=== PATIENT | female | born 1955 | race Caucasian/White ===

== ENCOUNTER 2019-05-02 10:00 | Day surgery (SDC) | payer OTHER ==
[2019-04-29 13:11] VITALS: BMI 26.5
[2019-05-02] MEDS ORDERED: LIDOCAINE HCL 1%, 10 MG/ML (20ML VIAL) ONE (10:53)
[2019-05-02] MEDS ORDERED: MIDAZOLAM HCL 2 MG/2 ML SINGLE DOSE VIAL ONE (11:32)
[2019-05-02] MEDS ORDERED: ceFAZolin SODIUM 1 GM VIAL IVPB ONE (11:37)
[2019-05-02] MEDS ORDERED: DEXAMETHASONE SOD PHOSPHATE 4 MG/1 ML VIAL ONE ×3 (11:37→14:44)
[2019-05-02] MEDS ORDERED: ceFAZolin SODIUM 1 GM VIAL ONE ×2 (11:37)
[2019-05-02] MEDS ORDERED: HEPARIN NA (PORCINE) 1,000 UNITS/ML 10ML M-D VIAL SQ ONE ×2 (12:05)
[2019-05-02] MEDS ORDERED: LIDOCAINE HCL 1%, 10 MG/ML (20ML VIAL) INF ONE (12:10)
[2019-05-02] MEDS ORDERED: oxyCODONE HCL 5 MG TABLET PO PRN (12:26)
[2019-05-02] MEDS ORDERED: ONDANSETRON 4 MG/2 ML VIAL IVPUSH PRN (12:26)
[2019-05-02] MEDS ORDERED: LACTATED RINGERS SOLUTION 1,000 ML IV SCH (12:30)
[2019-05-02] MEDS ORDERED: ROCURONIUM BROMIDE 50 MG/5 ML SYRINGE ONE ×2 (12:57→13:45)
[2019-05-02] MEDS ORDERED: PROPOFOL 20 ML ONE ×2 (12:57)
[2019-05-02] MEDS ORDERED: SUCCINYLCHOLINE CHLORIDE 200 MG/10 ML SYRINGE ONE (12:57)
[2019-05-02 13:30] VITALS: TEMP 97.7
[2019-05-02] MEDS ORDERED: GLYCOPYRROLATE 0.2 MG/1 ML VIAL ONE (14:44)
[2019-05-02] MEDS ORDERED: NEOSTIGMINE METHYLSULFATE 0.5 MG/ML - 10 ML MDV ONE (14:45)
[2019-05-02 15:30] VITALS: BP 123/74; PULSE 57
--- NOTE | 2019-05-02 15:54 | OP ---
DATE OF OPERATION: 05/02/2019 PREOPERATIVE DIAGNOSIS: Breast cancer, insufficient venous access. POSTOPERATIVE DIAGNOSIS: Breast cancer, insufficient venous access. PROCEDURE: Insertion of left Mediport via fluoroscopy. SURGEON: Betty Almonte MD ANESTHESIA: Local IV sedation. ESTIMATED BLOOD LOSS: Minimal. COMPLICATIONS: None. This was a sterile procedure. INDICATIONS: Patient has an ER/CO negative, HER2/elizabeth positive, lymph node positive right breast cancer, needs neoadjuvant chemotherapy and venous access. Therefore, my recommendation was a left Mediport. The procedure was discussed with her and all of the questions answered. DESCRIPTION OF PROCEDURE: Patient was brought to [facility] in [place]. Taken into the operating room, and after IV sedation and IV antibiotics, the left chest and neck were prepped and draped in the usual sterile fashion. The area in the upper left chest was anesthetized with 1% lidocaine without epinephrine. With Trendelenburg approach, percutaneous stick of the left subclavian vein was performed with good venous return. Using the Seldinger technique, a Mediport catheter was inserted into the superior vena cava under direct fluoroscopy. This catheter was flushed with heparinized saline. Next, a pocket for the Mediport was created, and the catheter was then tunneled through and cut at the appropriate length and attached to the Mediport device. The system was again flushed with heparinized saline with good venous return. Once hemostasis was assured, the incisions were closed in a routine fashion with interrupted 3-0 Vicryl, running 4-0 Biosyn. The catheter insertion incision also closed with 4-0 Biosyn. A sterile dressing over Tegaderm was applied. She tolerated procedure well. Was taken to recovery in good condition. BETTY ALMONTE M.D. [id number]
== END 2019-05-02 14:00 | disposition home or self-care (01) ==
LOC: JASU-SURG 10:00
PROVIDERS: ATTEND Surgery
PROC: 02HV33Z Insertion of Infusion Device into Superior Vena Cava, Percutaneous Approach (ICD-10-PCS; 2019-05-02)
PROC: B518ZZA Fluoroscopy of Superior Vena Cava, Guidance (ICD-10-PCS; 2019-05-02)
PROC: 0JH63XZ Insertion of Tunneled Vascular Access Device into Chest Subcutaneous Tissue and Fascia, Percutaneous Approach (ICD-10-PCS; principal; 2019-05-02 11:00)
DX: C50.919 Malignant neoplasm of unspecified site of unspecified female breast (principal)
CPT/HCPCS: 36561; 77001; C1788; 71045-TC-FY; 76000-TC-FY; 94760; J1644

== ENCOUNTER 2019-12-16 05:39 | Inpatient (IN) | payer OTHER ==
[2019-12-15 10:22] VITALS: BMI 24.0
--- NOTE | 2019-12-16 10:31 | EKG ---
Test Reason : Blood Pressure : / mmHG Vent. Rate : 069 BPM Atrial Rate : 069 BPM P-R Int : 190 ms QRS Dur : 098 ms QT Int : 400 ms P-R-T Axes : 064 -69 069 degrees QTc Int : 428 ms NORMAL SINUS RHYTHM LEFT AXIS DEVIATION ABNORMAL ECG NO PREVIOUS ECGS AVAILABLE Confirmed by TONYA ALVAREZ MD ([id number]) on 12/16/2019 10:30:48 AM Referred By: Betty Fallon Confirmed By:TONYA ALVAREZ MD
[2019-12-16] MEDS ORDERED: ISOSULFAN BLUE 10 MG/ML VIAL SQ ONE (12:29)
[2019-12-16] MEDS ORDERED: PROPOFOL 20 ML ONE ×2 (12:51)
[2019-12-16] MEDS ORDERED: MIDAZOLAM HCL 2 MG/2 ML SINGLE DOSE VIAL ONE (12:51)
[2019-12-16] MEDS ORDERED: DEXAMETHASONE SOD PHOSPHATE 4 MG/1 ML VIAL ONE (12:53)
[2019-12-16] MEDS ORDERED: KETOROLAC TROMETHAMINE 30 MG/1 ML VIAL ONE (12:53)
[2019-12-16] MEDS ORDERED: LIDOCAINE HCL/PF 2% SDV 5ML VIAL ONE (12:53)
[2019-12-16] MEDS ORDERED: LIDOCAINE HCL 1%, 10 MG/ML (20ML VIAL) ONE (12:53)
[2019-12-16] MEDS ORDERED: ceFAZolin SODIUM 1 GM VIAL ONE ×2 (12:53→18:21)
[2019-12-16] MEDS ORDERED: ceFAZolin SODIUM 1 GM VIAL IVPB ONE (13:08)
[2019-12-16] MEDS ORDERED: MORPHINE SULFATE 2 MG/ML VIAL IVPUSH PRN (14:48)
[2019-12-16] MEDS ORDERED: oxyCODONE HCL 5 MG TABLET PO PRN ×2 (14:58)
[2019-12-16] MEDS ORDERED: PROMETHAZINE HCL 25 MG/1 ML VIAL IVPUSH PRN (14:58)
[2019-12-16] MEDS ORDERED: ONDANSETRON 4 MG/2 ML VIAL IVPUSH PRN (14:58)
--- NOTE | 2019-12-16 16:44 | OP ---
DATE OF OPERATION: 12/16/2019 PREOPERATIVE DIAGNOSIS: Right breast cancer. POSTOPERATIVE DIAGNOSIS: Right breast cancer. PROCEDURE: Right total mastectomy and sentinel node biopsy. SURGEON: Betty Fallon MD ANESTHESIA: General. ESTIMATED BLOOD LOSS: 50 mL. DRAINS: ANGELO x2. COMPLICATIONS: None. This was a sterile procedure. INDICATION FOR PROCEDURE: Patient presented to me with an abnormal right mammogram and ultrasound as well as a right axillary ultrasound and needle biopsy of both the areas showing invasive carcinoma. She had neoadjuvant chemotherapy with an excellent response. She now presents for definitive surgery. The procedure was discussed with all the questions answered. PROCEDURE IN DETAIL: The patient was brought to [facility] and taken to radiology where attempted to localize the clip in the right axilla. I was unable to see it on the ultrasound and it was very deep only seen on the MLO view and was unable to localize this. Therefore, she was then brought to nuclear medicine where I injected technetium 99m sulfur colloid as an intradermal injection into the right 2 oclock areolar border. She was then brought into the operating room and after induction of general anesthesia and IV antibiotics, 5 mL of Isosulfan blue dye was injected into the right subareolar plexus and the breast was massaged for 5 minutes. The breast and axilla were then prepped and draped in the usual sterile fashion. A 4-cm incision was made in the right axilla carried down through the clavipectoral fascia to identify several sentinel lymph nodes. There was sentinel lymph node No. 1 hot and blue, sentinel lymph node No. 2 hot and blue, sentinel lymph node No. 3 hot and blue, and sentinel lymph node No. 4 hot and blue. There was a sentinel lymph node No. 5 that was blue but not hot. At this point there was no other blue dye radioactivity within the axilla that I could tell; therefore, I went on to do the right mastectomy. All of the specimens were sent for specimen radiograph but no clip was seen. An ellipse of skin was taken to include the nipple-areolar complex and the superior, inferior, medial, and lateral flaps were raised and the breast was reflected off the pectoralis muscle, tied with a stitch at the lateral edge, and sent as a right mastectomy. On exploring the axilla somewhat there was absolutely no palpable finding on palpable lymph nodes in the right axilla. There was another sentinel node I found that was sent as a right axillary sentinel node No. 6 hot but not blue. There was additional tissue that I initially felt might have a lymph node; however, ex vivo had no counts. This was sent as right axillary non-sentinel node. There was no other blue dye radioactivity or lymph nodes in the right axilla; therefore, once hemostasis was assured through 2 separate stab wounds, 2 Ivan Singh drains were inserted into the mastectomy site and secured to the skin with a 3-0 nylon stitch. The axillary incision was closed with an interrupted 3-0 Vicryl and the mastectomy incision was closed with skin wally, Vaseline gauze, Telfa, fluffs, ABDs, and a Surgi-Bra. She tolerated the procedure well, was extubated on the operating room table, and taken to the recovery in good condition. Waqas [id number]
[2019-12-16] MEDS ORDERED: CEFAZOLIN 1 GM in DEXTROSE 5%-WATER - 50 ML IVPB SCH (18:00)
[2019-12-16] MEDS ORDERED: DEXTROSE 5%-WATER - 50 ML IVPB ONE (18:21)
[2019-12-16] MEDS: CEFAZOLIN 1 GM in DEXTROSE 5%-WATER - 50 ML IVPB SCH (18:23)
--- NOTE | 2019-12-16 20:48 | PN ---
Progress Note (short form) - Note Progress Note: RAPID RESPONSE At 20:35pm, rapid response was called to evaluate a ptn s/p R mastectomy and sentinal lymph node. Nurses evaluated the patient during routine checks, and found her to be pale, diaphoretic, w/ hypotension. Patient stated she felt lightheadedness and dizzy. Physical exam showed no sources of blood loss. Heart and lung sounds were normal. Patient was put in trendelenburg and LR was ran wide open w/ vitals improving. Initial Vitals: BP: 59/36; MAP(43) P: 81 02 Sat: 100% Repeat Vitals s/p 1/2 liter LR wide open: BP: 76/51; MAP (59) P: 71 02 Sat: 100 % PHYSICAL -Alert and Oriented -Diaphoretic, Pale -Heart RRR, no R/G/M -Lungs CTABL -Abd Soft, non-tender, non-distended. -ANGELO 2x 50, 75cc each PLAN: -Hypotension s/p Surgery r/o blood/fluid loss vs vasovagal -1L LR Bolus w/ followup in 1 hr -Trendelenburg -Will reassess once fluid resuscitated -
[2019-12-16] MEDS ORDERED: LACTATED RINGERS SOLUTION 1,000 ML/1,000 ML INFUS.BAG IV STA (20:50)
[2019-12-17] MEDS ORDERED: LACTATED RINGERS SOLUTION 1,000 ML IV SCH (00:15)
[2019-12-17] MEDS ORDERED: ceFAZolin SODIUM 1 GM VIAL ONE ×2 (01:41→09:16)
[2019-12-17] MEDS ORDERED: DEXTROSE 5%-WATER - 50 ML IVPB ONE ×2 (01:41→09:17)
[2019-12-17] MEDS: CEFAZOLIN 1 GM in DEXTROSE 5%-WATER - 50 ML IVPB SCH ×2 (01:46→09:21)
--- NOTE | 2019-12-17 10:36 | PN ---
Progress Note (short form) - Note Progress Note: pod 1 s/p R mastectomy afebrile VSS doing well. pain control adequate. JPs functioning. R mastectomy flaps viable. d/c home today
[2019-12-17 11:12] VITALS: BP 114/59; PULSE 82; TEMP 97.6
--- NOTE | 2019-12-18 07:00 | EKG ---
Test Reason : Blood Pressure : / mmHG Vent. Rate : 066 BPM Atrial Rate : 066 BPM P-R Int : 164 ms QRS Dur : 088 ms QT Int : 396 ms P-R-T Axes : 049 -47 037 degrees QTc Int : 415 ms NORMAL SINUS RHYTHM LEFT AXIS DEVIATION LOW VOLTAGE QRS NONSPECIFIC T WAVE ABNORMALITY ABNORMAL ECG WHEN COMPARED WITH ECG OF 16-DEC-2019 09:37, T WAVE INVERSION NOW EVIDENT IN ANTERIOR LEADS CLINICAL CORRELATION IS RECOMMENDED Confirmed by ANA BOWERS, RAHUL ([id number]) on 12/18/2019 6:59:42 AM Referred By: Betty Fallon Confirmed By:RAHUL PEREZ MD
--- NOTE | 2019-12-19 09:21 | SURG ---
Surgery Service Observer Note Service Observer: Sharon Stacy PA-C Date of Service: 12/16/19 Diagnosis: right breast cancer Procedure: right breast total mastectomy with sentinel node biopsy I was present for the entirety of the operative procedure. For further detail, please refer to operative report. Visit type - Case Type Case Type: Scheduled - Emergency Emergency Visit: No - New patient This patient is new to me today: Yes Date on this admission: 12/16/19 - Critical Care Critical Care patient: No
--- NOTE | 2019-12-22 13:02 | PATH ---
Surgical Pathology Report Patient Name: KOJO MONTERO [facility]. Rec. #: [id number] /Age/Gender: 1955 (Age: 64) / F Account: [id number] Location: [address] [place] [address] Taken: 12/16/2019 Received: 12/19/2019 Reported: 12/22/2019 Physicians: Betty Fallon M.D. Specimen(s) Received A: RIGHT AXILLARY SENTINEL LYMPH NODE #1 HOT AND BLUE B: RIGHT AXILLARY SENTINEL LYMPH NODE #2 HOT AND BLUE C: RIGHT AXILLARY SENTINEL LYMPH NODE #3 HOT AND BLUE D: RIGHT AXILLARY SENTINEL LYMPH NODE #4 HOT AND BLUE E: RIGHT AXILLARY SENTINEL LYMPH NODE #5 BLUE NOT HOT F: RIGHT AXILLARY SENTINEL LYMPH NODE #6 HOT NOT BLUE G: RIGHT MASTECTOMY H: RIGHT AXILLARY NON SENTINEL LYMPH NODE Clinical History Breast cancer, s/p neoadjuvant Final Diagnosis A. AXILLARY SENTINEL LYMPH NODE #1, RIGHT, HOT AND BLUE, EXCISION: THREE LYMPH NODES NEGATIVE FOR CARCINOMA ON H&E AND CONFIRMED BY CYTOKERATIN AE1/3 (0/3). B. AXILLARY SENTINEL LYMPH NODE #2, RIGHT, HOT AND BLUE, EXCISION: ONE LYMPH NODE NEGATIVE FOR CARCINOMA ON H&E AND CONFIRMED BY CYTOKERATIN AE1/3 (0/1). C. AXILLARY SENTINEL LYMPH NODE #3, RIGHT, HOT AND BLUE, EXCISION: ONE LYMPH NODE NEGATIVE FOR CARCINOMA ON H&E AND CONFIRMED BY CYTOKERATIN AE1/3 (0/1). D. AXILLARY SENTINEL LYMPH NODE #4, RIGHT, HOT AND BLUE, EXCISION: ONE LYMPH NODE WITH FOCAL HISTIOCYTIC INFILTRATE, NEGATIVE FOR CARCINOMA, ON H&E AND CONFIRMED BY CYTOKERATIN AE1/3 (0/1). E. AXILLARY SENTINEL LYMPH NODE #5, RIGHT, BLUE NOT HOT, EXCISION: ONE LYMPH NODE NEGATIVE FOR CARCINOMA ON H&E AND CONFIRMED BY CYTOKERATIN AE1/3 (0/1). F. AXILLARY SENTINEL LYMPH NODE #6, RIGHT, HOT NOT BLUE, EXCISION: FOUR LYMPH NODES NEGATIVE FOR CARCINOMA ON H& E AND CONFIRMED BY CYTOKERATIN AE1/3 (0/4). G. 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 DCIS MEASURES 3 MM IN GREATEST MICROSCOPIC DIMENSION, PRESENT IN THREE OF SEVENTEEN SLIDES (3/17). NO RESIDUAL INVASIVE CARCINOMA IDENTIFIED. MULTIFOCAL RADIAL SCAR(S), FOCALLY ASSOCIATED WITH DCIS (UOQ). SMALL INTRADUCTAL PAPILLOMA (UOQ). SURGICAL MARGINS ARE UNINVOLVED BY DCIS; DCIS IS ATLEAST 2.5 CM (GROSS MEASUREMENT) FROM CLOSEST DEEP MARGIN. REMAINDER OF BREAST PARENCHYMA SHOWS PROLIFERATIVE FIBROCYSTIC CHANGES INCLUDING STROMAL FIBROSIS, MICROCYSTS, APOCRINE METAPLASIA, COLUMNAR CELL CHANGES, SCLEROSING ADENOSIS, USUAL DUCTAL HYPERPLASIA, AND ASSOCIATED MICROCALCIFICATIONS. SKIN AND NIPPLE ARE PRESENT AND UNINVOLVED BY CARCINOMA. PATHOLOGIC STAGE (pTNM): ypTis ypN0. SEE CASE SUMMARY BELOW. SEE COMMENT. H. AXILLARY NON-SENTINEL LYMPH NODE, RIGHT, EXCISION: ONE LYMPH NODE NEGATIVE FOR CARCINOMA (0/1). Comment: Immunohistochemical stains performed and interpreted at [facility] show retained myoepithelial cells (p63 and SMM-HC) in areas of sclerosing adenosis, radial scar, and DCIS. E-cadherin utilized to evaluate this case. Positive and negative controls (internal if applicable) show appropriate results. Comments Breast Invasive Carcinoma: Surgical Pathology Case Summary (Based on AJCC TNM 8 th edition) Procedure _X_ Total mastectomy (including nipple-sparing and skin-sparing mastectomy) Specimen Laterality _X_ Right Tumor Size _X_ No residual invasive carcinoma Histologic Type _X_ No residual invasive carcinoma Histologic Grade (Aditya Histologic Score) _X_ No residual invasive carcinoma Ductal Carcinoma In Situ (DCIS) _X_ DCIS is present in specimen _X_ Negative for extensive intraductal component (EIC) Estimated size (extent) of DCIS is at least (millimeters): 3 mm And/or: Number of blocks with DCIS: 3 Number of blocks examined: 17 Tumor Extension Skin _X_ Skin is present and uninvolved Nipple _X_ Nipple is present and uninvolved Skeletal Muscle _X_ No skeletal muscle is present. Margins DCIS Margins _X_ Uninvolved by DCIS Distance from closest margin (millimeters): Atleast 2.5 cm from deep margin (gross measurement) Regional Lymph Nodes _X_ Uninvolved by tumor cells Number of Lymph Nodes Examined: 12 Number of [place] Nodes Examined: 11 Treatment Effect in the Breast _X_ No residual invasive carcinoma is present in the breast after presurgical therapy Treatment Effect in the Lymph Nodes _X_ No lymph node metastases. Fibrous scarring or histiocytic aggregates, possibly related to prior lymph node metastases with pathologic complete response Pathologic Stage Classification (pTNM, AJCC 8th Edition) Primary Tumor (Invasive Carcinoma) (pT) _X__ pTis (DCIS): Ductal carcinoma in situ Regional Lymph Nodes (pN) Category (pN) _X_ pN0: No regional lymph node metastasis identified or ITCs only Biomarker Studies Results of ER and ND studies will be reported separately in an addendum. Formalin fixation time exceeds current ASCO/CAP recommendations for ER,PgR & Her2 testing (6-72 hrs). Negative results must be interpreted with caution as false negatives may occur. Cold ischemic time is within recommended guidelines/Time to formalin fixation is not given. Electronically Signed Lore Randhawa M.D. Addendum Reported: 12/23/2019 Addendum Diagnosis Results of (Estrogen Receptor) ER and (Progesterone Receptor) PgR studies performed on block G4 at [facility] are as follows: ER (clone [id number] mouse monoclonal antibody by [employer]): _X_ Negative PgR (clone16 mouse monoclonal antibody by [employer]): _X_ Negative Positive and negative controls (internal if applicable) show appropriate results. Formalin fixation and cold ischemic times are within current ASCO/CAP recommendations for ER, ND and Her2 testing. Lore Randhawa M.D. Gross Description A. Received fresh on an AccuGrid labeled "right axillary sentinel node #1," is a 6.0 x 3.0 x 0.9 cm portion of yellow, lobulated adipose tissue. Sectioning reveals 3 lymph nodes ranging from 0.5-1.2 cm in greatest dimension. The lymph nodes are entirely submitted in 3 cassettes as follows: 1-2-one lymph node each; 3-one bisected lymph node. B. Received fresh on an AccuGrid labeled "right axillary sentinel lymph node #2," is a 3.4 x 2.5 x 1.0 cm portion of yellow, lobulated adipose tissue. Sectioning reveals a 1.0 cm in greatest dimension lymph node. The lymph node is bisected and entirely submitted in one cassette. C. Received fresh on an AccuGrid labeled "right axillary sentinel node #3," is a 3.0 x 2.0 x 0.3 cm portion of yellow, lobulated adipose tissue. There is a 0.3 cm in greatest dimension lymph node present within the adipose tissue. The lymph node is submitted in toto in one cassette. D. Received fresh on an AccuGrid labeled "right axillary sentinel lymph node #4," is a 3.5 x 3.0 x 0.3 cm portion of yellow, lobulated adipose tissue. Sectioning reveals a 0.4 cm in greatest dimension lymph node. The lymph node is bisected and entirely submitted in one cassette. E. Received fresh on an AccuGrid labeled "right axillary sentinel lymph node #5," is a 2.5 x 2.0 x 0.5 cm portion of yellow, lobulated adipose tissue. Sectioning reveals a 1.4 cm in greatest dimension lymph node. The lymph node is submitted in toto in one cassette. F. Received fresh on an AccuGrid labeled "right axillary sentinel lymph node #6," is a 3.4 x 2.0 x 1.2 cm portion of yellow, lobulated adipose tissue. Sectioning reveals 4 lymph nodes ranging from 0.3-1.1 cm in greatest dimension. The lymph nodes are submitted in toto in 4 cassettes. G. Received in formalin, labeled "right mastectomy," is a 368 gram, 13.5 x 12.0 x 5.2 cm. right mastectomy specimen with a suture marking the lateral edge of the skin, per the surgeon. The anterior surface displays a 13.0 x 4.0 cm swanson, elliptical portion of skin with a 1.0 cm in diameter nipple. The deep margin is inked black and the anterior soft tissue margin is inked blue. The specimen is serially sectioned from lateral to medial. Sectioning reveals a 2.7 x 1.0 x 0.7 cm focus of firm fibrous tissue in the upper outer quadrant (UOQ), consistent with the tumor bed. The area of shows firm fibrous tissue with multiple small indurated foci. The focus is 2.5 cm from the deep margin and 3.5 cm from the skin. The remaining breast parenchyma displays abundant dense white fibrous tissue. [employer] sections are submitted in 17 cassettes as follows: 1-serially sectioned nipple; 2-subareolar shave; 9-0-iqynnjhtostv submitted tumor bed from medial to lateral; 8-3-wowjqzmyqb additional UOQ tissue; 10-11-lower outer quadrant; 12-13-upper inner quadrant; 14-15-lower inner quadrant; 16-skin and anterior soft tissue margin; 17-deep margin. Total formalin fixation time: Approximately 72 hours H. Received in formalin labeled "right axillary non-sentinel lymph node," is a 6.0 x 3.0 x 0.5 cm portion of yellow, lobulated adipose tissue. Sectioning reveals 2 swanson lymph nodes measuring 0.3 and 0.5 cm in greatest dimension. The lymph nodes are submitted in toto in one cassette. 12/19/2019 [facility]12/19/2019
== END 2019-12-17 13:12 | disposition home or self-care (01) | DRG 362 ==
LOC: J2C 05:39 → EDSTATUS 11:30 → J6S 16:46
PROVIDERS: ADMIT Surgery; ATTEND Surgery
PROC: 0HTT0ZZ Resection of Right Breast, Open Approach (ICD-10-PCS; principal; 2019-12-16 12:00)
PROC: 07B50ZX Excision of Right Axillary Lymphatic, Open Approach, Diagnostic (ICD-10-PCS; 2019-12-16 12:00)
DX: C50.911 Malignant neoplasm of unspecified site of right female breast (principal); I10 Essential (primary) hypertension
CPT/HCPCS: 76098-TC-FY; 76642-TC-RT; 77065-TC; 78195-TC; 88307-TC; 88341-TC; 93005; 93010; 94760; A9541

== ENCOUNTER 2022-10-14 04:59 | Day surgery (SDC) | payer OTHER ==
[2022-10-09 16:21] VITALS: BMI 25.0
[2022-10-14 10:16] VITALS: RESP 20
[2022-10-14] MEDS ORDERED: LIDOCAINE 1% P/F 10 MG/ML VIAL INF ONE (14:25)
[2022-10-14 15:53] VITALS: BP 108/75; PULSE 66; TEMP 98
== END 2022-10-14 15:54 | disposition home or self-care (01) ==
LOC: JASU-SURG 04:59
PROVIDERS: ATTEND Surgery
PROC: 0JPT0WZ Removal of Totally Implantable Vascular Access Device from Trunk Subcutaneous Tissue and Fascia, Open Approach (ICD-10-PCS; principal; 2022-10-14 11:30)
DX: C50.912 Malignant neoplasm of unspecified site of left female breast (principal)